=== PATIENT | female | born 1985 | race Caucasian/White ===

== ENCOUNTER 2017-08-20 10:08 | Emergency (ER) | payer OTHER ==
[2017-08-20 10:36] VITALS: TEMP 98.7; O2SAT 99
--- NOTE | 2017-08-20 11:23 | ED PDOC ---
Arrival/HPI - General Historian: Patient - History of Present Illness Time/Duration: Other (3 days) Context: Home - General Chief Complaint: Female Genitourinary Time Seen by Provider: 08/20/17 11:01 - History of Present Illness Narrative History of Present Illness (Text): 08/20/17 11:01 This 32 yo female Gravid, A1, presents to this ED c/o vaginal spotting x 3 days. Patient stated she was seen at [facility] x 2 days ago for same. She stated she had blood test and ultrasound. Patient noted ultrasound did not detect cardiac activity. Patient is requesting repeat US. Denies urinary symptoms, vaginal discharge, sob, cp, or pelvic pain. Patient was evaluated by her private ADAPTIVE PHYSICAL EDUCATION SPECIALIST yesterday, who recommended patient to come to ED if vaginal bleeding persist, and for Beta Quant. test repeat, and Ultrasound (Helene Agee) Past Medical History - Provider Review Nursing Documentation Reviewed: Yes - Psychiatric Hx Substance Use: No - Surgical History Hx Section: Yes - Anesthesia Hx Anesthesia: Yes Hx Anesthesia Reactions: No Family/Social History - Physician Review Nursing Documentation Reviewed: Yes Family/Social History: Other (non-contributory) Smoking Status: Never Smoked Hx Alcohol Use: No Hx Substance Use: No Allergies/Home Meds Allergies/Adverse Reactions: Allergies No Known Allergies Allergy (Verified 08/20/17 10:25) Home Medications: Home Meds Medication Instructions Recorded Confirmed No Known Home Med 08/18/17 08/20/17 Review of Systems - Review of Systems Constitutional: Normal. absent: Fatigue, Weight Change, Fevers, Night Sweats Eyes: Normal ENT: Normal. absent: Sore Throat Respiratory: Normal. absent: SOB, Cough Cardiovascular: Normal. absent: Chest Pain, Palpitations Gastrointestinal: Normal. absent: Abdominal Pain, Nausea, Vomiting Genitourinary Female: Vaginal Bleeding. absent: Dysuria, Frequency, Hematuria, Vaginal Discharge Musculoskeletal: Normal. absent: Back Pain Skin: Normal. absent: Rash Neurological: Normal. absent: Headache, Dizziness, Focal Weakness, Gait Changes , Speech Changes, Facial Droop, Disequilibrium, Seizure Endocrine: Normal Hemo/Lymphatic: Normal Psychiatric: Normal Physical Exam Temperature: Afebrile Blood Pressure: Normal Pulse: Regular Respiratory Rate: Normal Appearance: Positive for: Well-Appearing, Non-Toxic, Comfortable Pain Distress: None Mental Status: Positive for: Alert and Oriented X 3 - Systems Exam Head: Present: Atraumatic, Normocephalic Pupils: Present: PERRL Extroacular Muscles: Present: EOMI Conjunctiva: Present: Normal Mouth: Present: Moist Mucous Membranes Neck: Present: Normal Range of Motion Respiratory/Chest: Present: Clear to Auscultation, Good Air Exchange. No: Respiratory Distress, Accessory Muscle Use, Wheezes, Decreased Breath Sounds Cardiovascular: Present: Regular Rate and Rhythm, Normal S1, S2. No: Murmurs Abdomen: Present: Normal Bowel Sounds. No: Tenderness, Distention, Peritoneal Signs, Rebound, Guarding Genitourinary/Pelvic Exam: Present: Other (deferred) Upper Extremity: Present: Normal Inspection, Normal ROM, NORMAL PULSES, Neurovascularly Intact, Capillary Refill < 2s Lower Extremity: Present: Normal Inspection, NORMAL PULSES, Normal ROM, Capillary Refill < 2 s Neurological: Present: GCS=15, CN II-XII Intact, Speech Normal, Motor Func Grossly Intact, Normal Sensory Function, Normal Cerebellar Funct, Gait Normal Skin: Present: Warm, Dry, Normal Color. No: Rashes Psychiatric: Present: Alert, Oriented x 3, Normal Insight, Normal Concentration Vital Signs Temp Pulse Resp BP Pulse Ox 08/20/17 10:22 98.7 F 82 16 131/66 99 Medical Decision Making Re-evaluation Time: 12:51 Reassessment Condition: Re-examined, Improved - Lab Interpretations I have reviewed the lab results: Yes Interpretation: Abnormal lab values (decrease Beta Quant) ED Course and Treatment: I was available for consultation during PA evaluation. The chart was reviewed by me, and I agree with disposition. The documented history was done by the physician speed belt sander tender. The documented physical exam was done by the physician speed belt sander tender. The documented procedures were done by the physician speed belt sander tender. (Kiran Frances) 08/20/17 12:51 Re-evaluation. Patient feels better. Discussed results and plan with patient who expresses understanding. All questions answered and there is agreement with the plan to discharge home with instructions. Patient stable for discharge. Return if symptoms persist or worsen Patient was recommneded to f/u ADAPTIVE PHYSICAL EDUCATION SPECIALIST in 1-2 days. Patient will need to have a repeat US and Beta Quant. in 5-7 days. Return to ED if symptoms worsen. (Helene Agee) - Lab Interpretations Lab Results: Lab Results 08/20/17 11:30: Beta HCG, Quant 20920.00 H - RAD Interpretation Narrative RAD Interpretations (Text): 08/20/17 12:50 Accession No. : [id number] Patient Name / ID : ASHANTI HINTON / [id number] Exam Date : 08/20/2017 11:38:34 ( Approved ) Study Comment : Sex / Age : F / 32Y Creator : Tova Cristobal V. Dictator : Tova Cristobal V. Cloth Laminating Supervisor : Pattern Perforating Machine Operator : Tova Cristobal V. Approver2 : Report Date : 08/20/2017 12:37:12 My Comment : Clinical history: Spotting LMP: Is 06/06/2017 Prior examinations from the current :None TECHNIQUE: Real-time 2D imaging, duplex and color Doppler. FINDINGS: Cardiac activity: Not appreciated Measurements: Estimated embryonic pole/crown-rump length: 0.61cm Gestational age based on CRL 6 weeks 3 days Gestational age based on gestational sac measurement 7 weeks 1 day Gestational age derived from LMP: 10 weeks 5 days ANGELA based on LMP:03/13/2018 ANGELA based on biometry: 04/09/2018 Gestational concordance documented no Yolk sac present 0.23Uterus: Unremarkable. No Cervical abnormalities: Negative examination for cervical dilatation or effacement. Subchorionic hemorrhage: None ADNEXA: Right: Ovary 2.6 x 2.8 x 1.9 cm. Normal Doppler arterial waveform documented. Nonvisualized Fluid in the cul-de-sac: IMPRESSION . Although an intrauterine gestational sac, yolk sac and apparent embryonic pole are identified, no embryonic cardiac activity detected. At this stage of development based on biometrics, a failed needs to be considered. The ultrasound dating is discordant with the clinical dates no prior ultrasound studies verifying embryo viability noted As a precaution, consider repeat follow-up transvaginal ultrasound imaging in 5- 7 days with or without serial beta HCG levels . A failed , dating between the 6 weeks 3 days and 7 weeks 1 day is suspect. (Helene Agee) Radiology Orders: 08/20/17 11:21 OB TRANSVAGINAL [US] Stat Disposition/Present on Arrival - Present on Arrival Any Indicators Present on Arrival: No History of DVT/PE: No History of Uncontrolled Diabetes: No Urinary Catheter: No History of Decub. Ulcer: No History Surgical Site Infection Following: None - Disposition Have Diagnosis and Disposition been Completed?: Yes Disposition Time: 12:53 Patient Plan: Discharge - Disposition Diagnosis: Threatened in first trimester Disposition: HOME/ ROUTINE Condition: GOOD Discharge Instructions (ExitCare): Threatened Miscarriage (ED) Additional Instructions: Call private ADAPTIVE PHYSICAL EDUCATION SPECIALIST doctor in 1-2 days. You will need to have a repeat ultrasound and Beta Quant. test repeated in 5-7 days. Return to emergency if pain or bleeding worsen. or fever, or shortness of breath Referrals: Monet Concepcion MD [Primary Care Provider] - Follow up with primary Forms: [facility] (Tuvaluan), WORK NOTE
--- NOTE | 2017-08-20 12:38 | US ---
Clinical history: Spotting LMP: Is 06/06/2017 Prior examinations from the current :None TECHNIQUE: Real-time 2D imaging, duplex and color Doppler. FINDINGS: Cardiac activity: Not appreciated Measurements: Estimated embryonic pole/crown-rump length: 0.61cm Gestational age based on CRL 6 weeks 3 days Gestational age based on gestational sac measurement 7 weeks 1 day Gestational age derived from LMP: 10 weeks 5 days ANGELA based on LMP:03/13/2018 ANGELA based on biometry: 04/09/2018 Gestational concordance documentedno Yolk sac present 0.23Uterus: Unremarkable. No Cervical abnormalities: Negative examination for cervical dilatation or effacement. Subchorionic hemorrhage: None ADNEXA: Right: Ovary 2.6 x 2.8 x 1.9 cm. Normal Doppler arterial waveform documented. Nonvisualized Fluid in the cul-de-sac: IMPRESSION . Although an intrauterine gestational sac, yolk sac and apparent embryonic pole are identified, no embryonic cardiac activity detected. At this stage of development based on biometrics, a failed needs to be considered. The ultrasound dating is discordant with the clinical dates no prior ultrasound studies verifying embryo viability noted As a precaution, consider repeat follow-up transvaginal ultrasound imaging in 5-7 days with or without serial beta HCG levels . A failed , dating between the 6 weeks 3 days and 7 weeks 1 day is suspect.
[2017-08-20 12:58] VITALS: BP 128/65; PULSE 79; RESP 18
== END 2017-08-20 13:11 | disposition home or self-care (01) ==
LOC: ED 10:08
DX: O20.0 Threatened abortion (principal)

== ENCOUNTER 2018-04-13 17:35 | Emergency (ER) | payer OTHER ==
[2018-04-13 18:03] VITALS: PULSE 88; RESP 18; BMI 29.2
--- NOTE | 2018-04-13 18:17 | ED PDOC ---
Arrival/HPI - General Chief Complaint: Abdominal Pain Time Seen by Provider: 04/13/18 18:01 Historian: Patient - History of Present Illness Narrative History of Present Illness (Text): 04/13/18 18:14 A 33 year old female with presents to the emergency department complaining of intermittent lower abdominal pain for the past several weeks. Patient describes the pain as a cramping sensation. She reports taking a home test which showed to be positive. Patient denies any fever, chills, nausea, vomiting, diarrhea, urinary symptoms, chest pain, shortness of breath or any other complaints. Patients last menstrual period was sometime in January. Time/Duration: Other (several weeks) Symptom Course: Unchanged Quality: Cramping Context: Home Associated Symptoms (Text): 04/13/18 19:58 Patient reports LMP sometime in January. 5 para 2 abortions 2. Past Medical History - Provider Review Nursing Documentation Reviewed: Yes - Cardiac Hx Cardiac Disorders: No - Pulmonary Hx Respiratory Disorders: No - Neurological Hx Neurological Disorder: No - HEENT Hx HEENT Disorder: No - Renal Hx Renal Disorder: No - Endocrine/Metabolic Hx Diabetes Mellitus Type 2: Yes (GESTATIONAL 2010) - Hematological/Oncological Hx Blood Disorders: No - Integumentary Hx Dermatological Disorder: No - Musculoskeletal/Rheumatological Hx Musculoskeletal Disorders: No - Gastrointestinal Hx Gastrointestinal Disorders: No - Genitourinary/Gynecological Hx Genitourinary Disorders: Yes Hx Reproductive Disorders: Yes (SPONTANEOUS ) - Psychiatric Hx Psychophysiologic Disorder: No Hx Anxiety: Yes (UPSET ABOUT THIS EPISODE) Hx Substance Use: No - Surgical History Hx Section: Yes - Anesthesia Hx Anesthesia: Yes Hx Anesthesia Reactions: No Hx Malignant Hyperthermia: No Family/Social History - Physician Review Nursing Documentation Reviewed: Yes Family/Social History: No Known Family HX Smoking Status: Never Smoked Hx Alcohol Use: Yes Frequency of alcohol use: Socially Hx Substance Use: No Allergies/Home Meds Allergies/Adverse Reactions: Allergies No Known Allergies Allergy (Verified 04/13/18 18:09) Home Medications: Home Meds Medication Instructions Recorded Confirmed No Known Home Med 08/18/17 04/13/18 Review of Systems - Physician Review All systems were reviewed & negative as marked: Yes - Review of Systems Constitutional: absent: Fevers, Night Sweats Respiratory: absent: SOB Cardiovascular: absent: Chest Pain Gastrointestinal: Abdominal Pain (lower abdominal cramping). absent: Diarrhea, Nausea, Vomiting Genitourinary Female: absent: Dysuria, Frequency, Hematuria Physical Exam Vital Signs Reviewed: Yes Vital Signs Temp Pulse Resp BP Pulse Ox 04/13/18 18:01 99.0 F 88 18 144/83 100 Temperature: Afebrile Blood Pressure: Normal Pulse: Regular Respiratory Rate: Normal Appearance: Positive for: Well-Appearing, Non-Toxic, Comfortable Pain Distress: None Mental Status: Positive for: Alert and Oriented X 3 - Systems Exam Head: Present: Atraumatic, Normocephalic Pupils: Present: PERRL Extroacular Muscles: Present: EOMI Conjunctiva: Present: Normal Mouth: Present: Moist Mucous Membranes Neck: Present: Normal Range of Motion Respiratory/Chest: Present: Clear to Auscultation, Good Air Exchange. No: Respiratory Distress, Accessory Muscle Use Cardiovascular: Present: Regular Rate and Rhythm, Normal S1, S2. No: Murmurs Abdomen: No: Tenderness, Distention, Peritoneal Signs, Rebound, Guarding Back: Present: Normal Inspection Upper Extremity: Present: Normal Inspection. No: Cyanosis, Edema Lower Extremity: Present: Normal Inspection. No: Edema Neurological: Present: GCS=15, CN II-XII Intact, Speech Normal, Motor Func Grossly Intact Skin: Present: Warm, Dry, Normal Color. No: Rashes Psychiatric: Present: Alert, Oriented x 3, Normal Insight, Normal Concentration Medical Decision Making ED Course and Treatment: 04/13/18 18:14 Impression: A 33 year old female with lower abdominal cramping Plan: -- OB transvaginal ultrasound -- Labs -- Urine test -- Reassess and disposition Progress Notes: Report Date: 04/13/18 19:55 EXAM: US , Transvaginal Dictated and Authenticated by: Derrek Thornton MD IMPRESSION: Likely early . Consider serial hCG follow-up and repeat ultrasound in one or 2 weeks for more definitive assessment. Corpus luteal cyst of with an the right ovary. 04/13/18 20:26 Patient will need follow-up with her YARD SPOTTER and repeat ultrasound with repeat beta quantitative. - Lab Interpretations Lab Results: 04/13/18 18:30 04/13/18 18:30 Lab Results 04/13/18 18:45: Blood Type A POSITIVE, Antibody Screen Negative, BBK History Checked Patient has bt 04/13/18 18:30: Beta HCG, Quant 6463.50 H 04/13/18 18:30: Sodium 144, Potassium 3.9, Chloride 106, Carbon Dioxide 24, Anion Gap 18, BUN 9, Creatinine 0.7, Est GFR ( Amer) > 60, Est GFR (Non- Af Amer) > 60, Random Glucose 87, Calcium 9.0, Total Bilirubin 0.2, AST 26, ALT 26, Alkaline Phosphatase 79, Total Protein 7.9, Albumin 4.3, Globulin 3.5, Albumin/Globulin Ratio 1.2 04/13/18 18:30: WBC 14.6 H D, RBC 4.10, Hgb 13.1, Hct 38.0, MCV 92.7, MCH 32.0, MCHC 34.5, RDW 12.4, Plt Count 349, MPV 10.3, Gran % 65.8, Lymph % (Auto) 27.2, [place] % (Auto) 3.9, Eos % (Auto) 2.9, Baso % (Auto) 0.2, Gran # 9.58 H, Lymph # ( Auto) 4.0 H, [place] # (Auto) 0.6, Eos # (Auto) 0.4, Baso # (Auto) 0.03 - RAD Interpretation Radiology Orders: 04/13/18 18:29 OB TRANSVAGINAL [US] Stat - Scribe Statement The provider has reviewed the documentation as recorded by the Scribjosee Moore Provider Scribe Attestation: All medical record entries made by the Scribe were at my direction and personally dictated by me. I have reviewed the chart and agree that the record accurately reflects my personal performance of the history, physical exam, medical decision making, and the department course for this patient. I have also personally directed, reviewed, and agree with the discharge instructions and disposition. Disposition/Present on Arrival - Present on Arrival Any Indicators Present on Arrival: No History of DVT/PE: No History of Uncontrolled Diabetes: No Urinary Catheter: No History of Decub. Ulcer: No History Surgical Site Infection Following: None - Disposition Have Diagnosis and Disposition been Completed?: Yes Diagnosis: Intrauterine Disposition: HOME/ ROUTINE Disposition Time: 20:27 Patient Plan: Discharge Condition: GOOD Discharge Instructions (ExitCare): Care, - The First Month Referrals: Meghna Garcia MD [Primary Care Provider] - Follow up with primary Forms: [employer] (Italian)
[2018-04-13 19:11] LABS: ALB/GLOB RATIO 1.2 (1.1-1.8); ALBUMIN 4.3 g/dL (3.0-4.8); ALT/SGPT 26 U/L (7-56); AST/SGOT 26 U/L (14-36); BLOOD UREA NITROGEN 9 mg/dL (7-21); GFR NON-AFRICAN AMERICAN > 60
[2018-04-13 19:14] LABS: BASO # 0.03 K/mm3 (0.0-2.0); BASO % 0.2 % (0.0-3.0); EOS # 0.4 (0.0-0.7); EOS % 2.9 % (1.5-5.0); GRAN # 9.58 (1.4-6.5); GRAN % 65.8 % (50.0-68.0); HEMOGLOBIN 13.1 g/dL (12.0-16.0); LYMPH % 27.2 % (22.0-35.0); MEAN CELL VOLUME 92.7 fl (80.0-105.0); MEAN CORPUSCULAR HGB CONC 34.5 g/dl (31.0-37.0); MEAN PLATELET VOLUME 10.3 fl (7.0-11.0); MONO # 0.6 (0.1-0.6); MONO % 3.9 % (1.0-6.0); RBC 4.1 10^6/uL (3.5-6.1); RED CELL DISTRIBUTION WIDTH 12.4 % (11.5-14.5); WHITE BLOOD COUNT 14.6 10^3/ul (4.5-11.0)
[2018-04-14 00:59] VITALS: BP 142/80; TEMP 98.9; O2SAT 99
--- NOTE | 2018-04-14 12:01 | US ---
PROCEDURE: HISTORY: R/O ectopic COMPARISON: TECHNIQUE: FINDINGS: The uterus measures 7.5 x 4.3 x 4.9 centimeters. There is intrauterine sac measuring 8 millimeters corresponding to less than 5 weeks gestational age. A yolk sac is present. There is no pole. The right ovary measures 4.1 x 2.9 x 3.7 centimeters contains a 2.4 centimeters cyst. The left ovary measures 2.4 centimeters. IMPRESSION: Intrauterine sac measuring less than 5 weeks gestational age. This could represent an early . Blighted ovum and ectopic not definitively excluded. Recommend correlation with serial beta HCG levels and short-term interval followup.
== END 2018-04-13 20:40 | disposition home or self-care (01) ==
LOC: ED 17:35
DX: O26.891 Other specified pregnancy related conditions, first trimester (principal); Z3A.01 Less than 8 weeks gestation of pregnancy; R10.30 Lower abdominal pain, unspecified

== ENCOUNTER 2019-03-05 22:43 | Emergency (ER) | payer OTHER ==
[2019-03-05 22:44] VITALS: BMI 29.2
[2019-03-05 23:19] VITALS: BP 125/79; PULSE 82; RESP 18; TEMP 98.8; O2SAT 98
[2019-03-05 23:51] LABS: URINE BILIRUBIN NEGATIVE (NEGATIVE); URINE BLOOD NEGATIVE (NEGATIVE); URINE GLUCOSE (UA) NEGATIVE (NEGATIVE); URINE LEUKOCYTE ESTERASE NEGATIVE Leu/uL (NEGATIVE); URINE PROTEIN NEGATIVE mg/dL (<30 mg/dL); URINE UROBILINOGEN 0.2 E.U./dL (<1 E.U./dL)
[2019-03-05 23:53] LABS: URINE APPEARANCE CLEAR (CLEAR); URINE COLOR YELLOW (YELLOW)
[2019-03-06] MEDS ORDERED: Lidocaine 5% Patch TD STA (01:00)
--- NOTE | 2019-03-06 01:16 | ED PDOC ---
Arrival/HPI - General Chief Complaint: Back Pain Historian: Patient - History of Present Illness Narrative History of Present Illness (Text): 03/05/19 23:35 A 33 year old female with no significant past medical history presents to the emergency room complaining of left sided lower back pain for the past 2 days. Patient states pain shoots down her left buttock into her left leg. Patient reports experiencing associated intermittent parasthesia to her left toes. Patient states she has never has this pain before but states she has been doing more lifting at home with her two young children. Patient states pain is worse when sitting for long periods of time. Patient notes she took motrin for pain to some relief. Patient denies any trauma, saddle anaesthesia, bowel or bladder incontinence, weakness, urinary symptoms, abdominal pain, nausea, vomiting, vaginal discharge, vaginal bleeding, calf pain, calf swelling, or any other complaints. PMD: Dr. Echavarria Time/Duration: Other (2 days) Symptom Onset: Gradual Symptom Course: Unchanged Activities at Onset: Light Context: Home Past Medical History - Provider Review Nursing Documentation Reviewed: Yes - Infectious Disease Hx of Infectious Diseases: None - Cardiac Hx Cardiac Disorders: No - Pulmonary Hx Respiratory Disorders: No - Neurological Hx Neurological Disorder: No - HEENT Hx HEENT Disorder: No - Renal Hx Renal Disorder: No - Endocrine/Metabolic Hx Diabetes Mellitus Type 2: Yes (GESTATIONAL 2010) - Hematological/Oncological Hx Blood Disorders: No - Integumentary Hx Dermatological Disorder: No - Musculoskeletal/Rheumatological Hx Musculoskeletal Disorders: No - Gastrointestinal Hx Gastrointestinal Disorders: No - Genitourinary/Gynecological Hx Genitourinary Disorders: Yes Hx Reproductive Disorders: Yes (SPONTANEOUS ) - Psychiatric Hx Psychophysiologic Disorder: No Hx Anxiety: Yes Hx Substance Use: No - Surgical History Hx Section: Yes (x3) Hx Dilation and Curettage: Yes - Anesthesia Hx Anesthesia: Yes Hx Anesthesia Reactions: No Hx Malignant Hyperthermia: No Family/Social History - Physician Review Nursing Documentation Reviewed: Yes Family/Social History: No Known Family HX Smoking Status: Never Smoked Hx Alcohol Use: Yes Hx Substance Use: No Allergies/Home Meds Allergies/Adverse Reactions: Allergies No Known Allergies Allergy (Verified 04/13/18 18:09) Review of Systems - Physician Review All systems were reviewed & negative as marked: Yes - Review of Systems Constitutional: Normal. absent: Fevers Respiratory: Normal. absent: SOB, Cough Cardiovascular: Normal. absent: Chest Pain Gastrointestinal: Normal. absent: Abdominal Pain, Stool Changes, Nausea, Vomiting, Appetite Changes Genitourinary Female: absent: Vaginal Bleeding, Vaginal Discharge, Other (no bowel or bladder incontinence) Musculoskeletal: Back Pain (lower back pain). absent: Neck Pain Skin: Normal. absent: Rash Neurological: Normal, Other (parasthesia to left toes, no saddle anaesthesia, no weakness). absent: Headache, Dizziness, Focal Weakness Physical Exam Vital Signs Reviewed: Yes Vital Signs Temp Pulse Resp BP Pulse Ox 03/05/19 22:44 98.8 F 82 18 125/79 98 Temperature: Afebrile Blood Pressure: Normal Pulse: Regular Respiratory Rate: Normal Appearance: Positive for: Well-Appearing Pain Distress: None Mental Status: Positive for: Alert and Oriented X 3 - Systems Exam Head: Present: Atraumatic, Normocephalic Pupils: Present: PERRL Extroacular Muscles: Present: EOMI Conjunctiva: Present: Normal Mouth: Present: Moist Mucous Membranes Neck: Present: Normal Range of Motion. No: Meningeal Signs, MIDLINE TENDERNESS, Paraspinal Tenderness Respiratory/Chest: Present: Clear to Auscultation, Good Air Exchange. No: Respiratory Distress, Accessory Muscle Use Cardiovascular: Present: Regular Rate and Rhythm, Normal S1, S2, Peripheal Pulses Present Abdomen: Present: Normal Bowel Sounds. No: Tenderness, Distention, Peritoneal Signs, Rebound, Guarding Back: Present: Paraspinal Tenderness (mild left sided lumbar paraspinal tenderness and spasm ), Pain with Leg Raise (left sided). No: CVA Tenderness, Midline Tenderness Upper Extremity: Present: Normal Inspection, Normal ROM, NORMAL PULSES, Neurovascularly Intact, Capillary Refill < 2s. No: Temperature Abnormalties Lower Extremity: Present: Normal Inspection, NORMAL PULSES, Normal ROM, Neurovascularly Intact, Capillary Refill < 2 s. No: CALF TENDERNESS, Tenderness, Swelling, Temperature Abnormalties Neurological: Present: GCS=15, CN II-XII Intact, Speech Normal, Motor Func Grossly Intact, Normal Sensory Function, Gait Normal Skin: Present: Warm, Dry, Normal Color. No: Rashes Psychiatric: Present: Alert, Oriented x 3, Normal Insight, Normal Concentration Medical Decision Making ED Course and Treatment: 03/05/19 23:35 Impression: 33 year old female presenting to the emergency room complaining of lower back pain. Plan: -- Valium -- Toradol -- Lidoderm -- UA -- Xray of lumbar spine -- Reassess and disposition Prior Visits: Notes and results from previous visits were reviewed. Progress Notes: Lumbar spine XR negative for acute pathology as read by me UA unremarkable Patient reports significant improvement in symptoms with medication. Will discharge home with pain medication and advise PMD and orthopedic followup. Diagnostic testing results and plan of care discussed with patient. Strict instructions given regarding prescription use, importance of followup, and signs/symptoms to return to ER including numbness, weakness, saddle anesthesias, or any other new/worsening symptoms. Pt verbalized understanding of discussion. Patient is A&Ox3, ambulating with steady gait, with vital signs stable for discharge. - Lab Interpretations Lab Results: Urine Color Yellow (YELLOW) 03/05/19 23:00 Urine Appearance Clear (CLEAR) 03/05/19 23:00 Urine pH 8.0 (4.7-8.0) 03/05/19 23:00 Ur Specific [place] 1.015 (1.005-1.035) 03/05/19 23:00 Urine Protein Negative mg/dL (<30 mg/dL) 03/05/19 23:00 Urine Glucose (UA) Negative mg/dL (NEGATIVE) 03/05/19 23:00 Urine Ketones Negative mg/dL (NEGATIVE) 03/05/19 23:00 Urine Blood Negative (NEGATIVE) 03/05/19 23:00 Urine Nitrate Negative (NEGATIVE) 03/05/19 23:00 Urine Bilirubin Negative (NEGATIVE) 03/05/19 23:00 Urine Urobilinogen 0.2 E.U./dL (<1 E.U./dL) 03/05/19 23:00 Ur Leukocyte Esterase Negative Abdiaziz/uL (NEGATIVE) 03/05/19 23:00 I have reviewed the lab results: Yes - RAD Interpretation Radiology Orders: 03/05/19 23:20 LS SPINE WITH OBL > 18 YRS OLD [RAD] Stat Rn Family Practice: ED Physician - Medication Orders Current Medication Orders: Discontinued Medications Diazepam (Valium) 5 mg PO ONCE ONE; Protocol Stop: 03/05/19 23:41 Last Admin: 03/05/19 23:54 Dose: 5 mg Ketorolac Tromethamine (Toradol) 60 mg IM STAT STA Stop: 03/05/19 23:41 Last Admin: 03/05/19 23:54 Dose: 60 mg MAR Pain Assessment Document 03/05/19 23:54 EB (Rec: 03/05/19 23:55 [id number] Pain Reassessment Is this a pain reassessment? No Sleep Is patient sleeping during reassessment? No Presence of Pain Presence of Pain Yes Pain Scale Used Protocol: PSCALES Pain Scale Used Numeric Location Upper or Lower Lower Pain Location Body Site Back Description Description Sharp Intensity of Pain at present 7 Pain Behavior Rubbing Site Aggravating Factors Changing Position Standing IM Administration Charges Document 03/05/19 23:54 EB (Rec: 03/05/19 23:55 [id number] Charges for Administration # of IM Administrations 1 Lidocaine (Lidoderm) 1 ea TD STAT STA Stop: 03/06/19 01:01 - Scribe Statement The provider has reviewed the documentation as recorded by the Farooqibjosee Cano All medical record entries made by the Scribe were at my direction and personally dictated by me. I have reviewed the chart and agree that the record accurately reflects my personal performance of the history, physical exam, medical decision making, and the department course for this patient. I have also personally directed, reviewed, and agree with the discharge instructions and disposition. Disposition/Present on Arrival - Present on Arrival Any Indicators Present on Arrival: No History of DVT/PE: No History of Uncontrolled Diabetes: No Urinary Catheter: No History of Decub. Ulcer: No History Surgical Site Infection Following: None - Disposition Have Diagnosis and Disposition been Completed?: Yes Diagnosis: Low back pain with sciatica Disposition: HOME/ ROUTINE Disposition Time: 01:00 Patient Plan: Discharge Condition: IMPROVED Discharge Instructions (ExitCare): Sciatica (DC), Sciatica Exercises Print Language: UKRAINIAN Additional Instructions: Ibuprofen every 8 hours as needed for pain Lidoderm patches daily, 12 hours on 12 hours off Flexeril nightly before bed, do not take before driving Followup with orthopedics within 2 days Followup with primary doctor within 2 days Return to ER with any new/worsening symptoms Prescriptions: Cyclobenzaprine [Cyclobenzaprine HCl] 10 mg PO HS PRN #7 tab PRN Reason: Muscle Spasm Ibuprofen [Motrin Tab] 600 mg PO Q8 PRN #30 tab PRN Reason: Pain, Moderate (4-7) Lidocaine 5% [Lidoderm] 1 ea TD DAILY PRN #30 patch PRN Reason: Pain, Mild (1-3) Referrals: Georgi Garces III, MD [Medical Doctor] - Follow up with primary Silvia Isaac MD [Medical Doctor] - [place] up [place] [facility] [place] [facility] [place] - Follow up with primary Forms: [employer] ([place]), WORK NOTE
--- NOTE | 2019-03-06 09:56 | RAD ---
Date of service: 03/06/2019 PROCEDURE: Radiographs of the Lumbar Spine. HISTORY: back pain COMPARISON: None available. FINDINGS: BONES: Alignment appears satisfactory. No listhesis. No acute displaced fracture identified. DISC SPACES: Unremarkable. OTHER FINDINGS: Moderate constipation. IUD. IMPRESSION: No acute displaced fracture or subluxation identified. Moderate constipation. IUD.
== END 2019-03-06 01:31 | disposition home or self-care (01) ==
LOC: ED 22:43
DX: M54.40 Lumbago with sciatica, unspecified side (principal)
CPT/HCPCS: 72110; 81003; 81025; 96372; 99283; J1885